=== PATIENT | female | born 1975 | race Caucasian/White ===

== ENCOUNTER → 2019-02-21 | Outpatient (CLI) | payer OTHER ==
--- NOTE | 2019-02-21 14:25 | RADIOLOGY REPORT (SQ) ---
EXAM DESCRIPTION: MRI RT LOWER EXTREMITY WITHOUT COMPLETED DATE/TIME: 02/21/2019 8:33 am REASON FOR STUDY: PAIN IN R FOOT M79.671 PAIN IN RIGHT FOOT COMPARISON: None. TECHNIQUE: Right ankle images acquired and stored on PACS. Multiplanar images include fat sensitive sequences as T1, fluid sensitive sequences as FST2/STIR, cartilage sensitive sequences as FSPD, and g radient echo sequences. LIMITATIONS: None. FINDINGS: BONE MARROW: There is marrow edema in the plantar aspect of the calcaneus along the small plantar spur, best shown on sagittal STIR image 9 EFFUSIONS: No subtalar or tibiotalar effusions. No loose bodies. OSSEOUS ARTICULATIONS: Normal tibiotalar, subtalar, talonavicular and calcaneocuboid joints. There i s along calcaneal articular process with possible fibrous coalition between the calcaneus and navicul ar bone, best shown on sagittal images 10 through 12. TALAR DOME AND TIBIAL PLAFOND: Normal cartilage. No osteochondral defect. ACHILLES TENDON: Intact without partial or full-thickness tear. No adjacent bursal fluid or edema. TIBIALIS ANTERIOR TENDON: Intact without edema at the 1st MT attachment. TIBIALIS POSTERIOR TENDON: Normal morphology and no edema at the navicular attachment. No tendon lockhart th fluid. FLEXOR HALLUCIS LONGUS AND FLEXOR DIGITORUM TENDONS: Normal morphology and no tendon sheath fluid. No edema of the os trigonum. PERONEUS LONGUS AND BREVIS TENDON: Peroneus longus is unremarkable. The distal 2 cm of the peroneus brevis tendon is slightly increased in signal on T1 weighted images from tendinopathy near the navicu lar attachment, best shown on axial STIR images 17-19. ATFL, CFL, PTFL: Intact. No thickening or signal alteration. No mitch-ligamentous fluid. DELTOID LIGAMENT: Visualized components intact. TARSAL TUNNEL: No masses. No muscle atrophy. SINUS TARSI: No fluid. No reactive marrow edema or erosions. PLANTAR FASCIA: There is edema in the calcaneal plantar surface, along the small calcaneal spur sagit marlon image 9. Thickening and mild increased signal of the plantar fascia at its attachment to the hakeem caneus is seen on sagittal T1 weighted image 9. These findings are also present on coronal STIR imag es 17-22. This is along the medial bundle of the plantar fascia. ADJACENT SOFT TISSUES: No masses. OTHER: No other significant finding. 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
== END ==
LOC: RAD 07:44
PROVIDERS: ATTEND Family Medicine
DX: M72.2 Plantar fascial fibromatosis (principal); M79.671 Pain in right foot

== ENCOUNTER → 2019-12-20 | Outpatient (CLI) | payer OTHER | LOC: WI 08:15 | PROVIDERS: ATTEND Family Medicine | DX: Z12.31 Encounter for screening mammogram for malignant neoplasm of breast (principal) | CPT/HCPCS: 77063; 77067 ==